=== PATIENT | male | born 1990 | race Caucasian/White ===

== ENCOUNTER 2019-06-20 13:09 | Emergency (ER) | payer SELFPAY ==
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
[2019-06-20] MEDS ORDERED: Diphtheria,Pertussis(Acell),Tetanus Vaccine 0.5 ML Syringe IM ONE (15:01)
--- NOTE | 2019-06-20 15:58 | CR ---
Right knee: Four views of the right knee were obtained. Comparison: No previous knee exam. Medial and lateral joint spaces are maintained. Small joint effusion is seen. Patellofemoral joint is unremarkable. No acute fracture or other bony abnormality is seen. Impression: 1. Small nonspecific joint effusion. 2. No additional abnormality is appreciated on right knee exam. Diagnostic code #3 MTDD
== END 2019-06-20 16:30 | disposition home or self-care (01) ==
LOC: MW.ED 13:09
DX: S89.91XA Unspecified injury of right lower leg, initial encounter (principal); M25.532 Pain in left wrist; M25.531 Pain in right wrist; Z23 Encounter for immunization; F17.210 Nicotine dependence, cigarettes, uncomplicated; Z91.030 Bee allergy status; Z88.0 Allergy status to penicillin; Y08.89XA Assault by other specified means, initial encounter
CPT/HCPCS: 73562-26-RT; 73562-RT; 90471; 90715; 99283